=== PATIENT | male | born 1950 | race Caucasian/White ===

== ENCOUNTER 2019-12-14 13:58 | Outpatient (CLI) | payer MEDICARE, SELFPAY ==
--- NOTE | 2019-12-14 14:21 | XR_ITS ---
WS: [id number] Chest 2 views, 12/14/2019 Clinical Data: COUGH Comparison: None. Findings: No nodules, masses or effusions are seen. The heart is normal. The pulmonary vascularity is not increased. No pneumonia or pneumothorax is seen. The aortic arch and descending aorta are minima lly tortuous. XR/XR chest 2V* [id number] Impression: Atherosclerosis.
== END 2019-12-14 13:59 | disposition home or self-care (01) ==
LOC: RADWPI 14:06
PROVIDERS: Family Provider Family Medicine; PCP Family Medicine; Visit Provider Nurse Practitioner Family
DX: I70.0 Atherosclerosis of aorta (principal); R05 Cough
CPT/HCPCS: 71046